=== PATIENT | male | born 1970 | race African-American/Black ===

== ENCOUNTER 2018-01-16 23:40 | Inpatient (IN) | payer MEDICAID ==
[~2018-01-16] VITALS: Ht 180.3 cm; Wt 72.1 kg
--- NOTE | 2018-01-16 23:40 | NUR ---
Mckayla leigh in [facility] - 01/16/18 at 2350 by MMTHEM Patient REGGIE TRAN, transferred to bed 1. RN evaluating patient at bedside.
[2018-01-16 23:46] VITALS: BP 115/64
--- NOTE | 2018-01-16 23:51 | NUR ---
TO BED # 10 AMBULATORY REPORT GIVEN TO MARVA
--- NOTE | 2018-01-17 | NUR ---
47/M BIBA FROM HOME. PT STATED HAD N/V X4 WITH LITTLE "DARK SLIMY BLOOD." PT STATED HE HAS BEEN HAVING 9/10 SHARP CONSTANT DIFFUSE ABD PAIN, R GREATER THAN L, RADIATING TO R LOWER BACK, X5 DAYS. PT REPORTS DECREASED APPETITE, "HAVEN'T BEEN EATING IN 5 DAYS." LBM 5 DAYS AGO. HX GASTRITIS, HERPES; RX OMEPRAZOLE; NKA. SKIN IS INTACT, PINK/WARM/DRY; AAOX4, PERRL, WITH EVEN AND STEADY GAIT; LUNGS CLEAR BL, BREATHING UNLABORED; BS HYPOACTIVE X4, ABD SOFT ROUND SLIGHLY TENDER TO TOUCH. PT DENIES ANY FEVER, CP, SOB, OR COUGH AT THIS TIME; PATIENT POSITIONED FOR COMFORT; HOB ELEVATED; BEDRAILS UP X2; BED DOWN.
--- NOTE | 2018-01-17 01:11 | NUR ---
Dr. Ferrell evaluating patient at bedside.
[2018-01-17] MEDS ORDERED: MORPHINE SULFATE 4 MG/ML SYR IVP ONE (01:15)
[2018-01-17] MEDS ORDERED: NACL 0.9% 1,000 ML IV SCH ×2 (01:15→03:17)
[2018-01-17 01:32] LABS: BASOPHILS % (AUTO) 0.8 % (0.0-2.0); HEMATOCRIT 29.4 % (36-52); HEMOGLOBIN 9.6 g/dL (12.0-18.0); LYMPHOCYTES # (AUTO) 0.9 K/uL (2.0-11.5); LYMPHOCYTES % (AUTO) 26.3 % (20.5-51.1); MEAN CORPUSCULAR HEMOGLOBIN 29 pg (27-31); MEAN CORPUSCULAR HGB CONC 33 g/dL (33-37); MEAN CORPUSCULAR VOLUME 89.1 fL (80-94); MONOCYTES # (AUTO) 0.5 K/uL (0.8-1.0); MONOCYTES % (AUTO) 15.3 % (1.7-9.3); NEUTROPHILS % (AUTO) 57.6 % (42.2-75.2)
[2018-01-17 01:49] LABS: ALBUMIN 3.1 g/dL (3.4-5.0); ANION GAP 15.2 (8-16); CARBON DIOXIDE 25.4 mmol/L (21-32); CREATININE 1.2 mg/dL (0.7-1.3); POTASSIUM 3.6 mmol/L (3.5-5.1); TOTAL BILIRUBIN 0.4 mg/dL (0.0-1.0)
[2018-01-17 01:56] LABS: PLATELET COUNT (AUTO) 47 K/uL (140-450); RED CELL DISTRIBUTION WIDTH 21.8 % (11.6-13.7); WHITE BLOOD COUNT (AUTO) 3.4 K/uL (4.8-10.8)
--- NOTE | 2018-01-17 02:00 | NUR ---
PT RESTING COMFORTABLY IN BED, RR EVEN AND UNLABORED. ALL NEEDS MET AT THIS TIME.
[2018-01-17 02:01] LABS: APPEARANCE,URINE CLEAR (CLEAR); BILIRUBIN,URINE NEGATIVE (NEGATIVE); BLOOD, URINE 1+ (NEGATIVE); COLOR,URINE YELLOW (YELLOW); LEUKOCYTE ESTERASE ,URINE NEGATIVE (NEGATIVE); NITRITE, URINE NEGATIVE (NEGATIVE); PH,URINE 5.5 (5.0-9.0); UGLUCOSE NEGATIVE (NEGATIVE)
[2018-01-17 02:02] LABS: CALCIUM OXALATE CRYSTALS,UR 30-50 /HPF (None Seen); RBC,URINE 3-10 (FEW) /HPF (0-5); WBC,URINE 0-5 (RARE) /HPF (0-5)
[2018-01-17] MEDS ORDERED: HYDROcodone/APAP 5/325 MG 1 TAB TAB PO PRN (03:20)
[2018-01-17] MEDS ORDERED: ONDANSETRON 4 MG/2 ML VIAL IM/IVP PRN (03:20)
[2018-01-17] MEDS ORDERED: ACETAMINOPHEN 325 MG TAB PO PRN (03:20)
[2018-01-17] MEDS ORDERED: ZOLPIDEM 5 MG TAB PO PRN (03:20)
[2018-01-17] MEDS ORDERED: DOCUSATE SODIUM 100 MG GELCAP PO PRN (03:20)
[2018-01-17] MEDS ORDERED: LORazepam 2 MG/ML VIAL IM/IVP PRN (03:20)
[2018-01-17] MEDS ORDERED: MUPIROCIN 2% OINT 22 GM TUBE TP PRN (03:20)
[2018-01-17 03:48] LABS: BARBITURATE, URINE NEG. ng/ml (NEG <=200); BENZODIAZEPINE, URINE NEG. ng/mL (NEG <=200); CANNABINOID, URINE POS. ng/mL (NEG <=50); COCAINE, URINE NEG. ng/mL (NEG <=300); OPIATE, URINE NEG. ng/mL (NEG <=2000); PHENCYCLIDINE SCREEN,URINE NEG. ng/mL (NEG <=25)
[2018-01-17 03:52] LABS: CHOL/HDL RATIO 4.3 (1-4.5); MAGNESIUM 1.7 mg/dL (1.8-2.4); PHOSPHORUS 4.2 mg/dL (2.5-4.9); THYROID STIMULATING HORMONE 0.85 uIU/mL (0.34-3.74)
[2018-01-17 04:20] VITALS: BP 121/69
--- NOTE | 2018-01-17 04:20 | NUR ---
PT ARRIVED TO UNIT VIA GURNEY WITH SIGNIFICANT OTHER. RECEIVED REPORT FROM ER NURSE COOPER-RN. PT AOX4-CALM AND COOPERATIVE. ON ROOM AIR. IV RIGHT AC 20G. AMBULATORY. DISCUSSED PLAN OF CARE AND PT VERBALIZED UNDERSTANDING. VITAL SIGNS WITHIN NORMAL LIMITS. ON TELE-SB. NO S/S OF RESPIRATORY DISTRESS OR DISCOMFORT NOTED AT THIS TIME. ORIENTED PT TO ROOM, BED, CALL LIGHT. BED IN LOWEST POSITION, BED BREAKS ON, BOTH SIDE RAILS UP. BED SIDE TABLE AND CALL LIGHT WITHIN REACH. WILL CONTINUE TO MONITOR.
--- NOTE | 2018-01-17 04:20 | NUR ---
Patient will be admitted to care of DR. GARSIA. Admited to TELE. Will go to room 119B. Belongings list completed. Report to DORA SCHWAB AT BEDSIDE.
[2018-01-17] MEDS ORDERED: LORazepam 0.5 MG TAB PO PRN ×2 (04:30)
[2018-01-17] MEDS ORDERED: DEXAMETHASONE 10 MG/ML VIAL IVP SCH (05:00)
--- NOTE | 2018-01-17 05:00 | NUR ---
MRSA COLLECTED. NEW BAG OF NS HUNG RUNNING AT 60ML/HR. PT TOLERATED WELL. NO S/S OF RESPIRATORY DISTRESS OR DISCOMFORT. WILL CONTINUE TO MONITOR.
--- NOTE | 2018-01-17 05:30 | NUR ---
SCHEDULED MEDICATION GIVEN AND TOLERATED WELL. NO S/S OF RESPIRATORY DISTRESS OR DISCOMFORT NOTED AT THIS TIME. WILL CONTINUE TO MONITOR.
[2018-01-17] MEDS ORDERED: BISACODYL 10 MG SUPP RC ONE (06:30)
--- NOTE | 2018-01-17 07:00 | NUR ---
SUPPOSITORY GIVEN AND TOLERATED WELL. NO S/S OF RESPIRATORY DISTRESS OR DISCOMFORT NOTED AT THIS TIME. WILL CONTINUE TO MONITOR.
[2018-01-17 07:38] LABS: HEMATOCRIT 28.5 % (36-52); HEMOGLOBIN 9.5 g/dL (12.0-18.0)
[2018-01-17] MEDS ORDERED: METOCLOPRAMIDE 10 MG/2 ML INJ VIAL IVP PRN (07:40)
--- NOTE | 2018-01-17 07:42 | NUR ---
RECEIVED REPORT FROM GROCERY ASSOCIATE RN. PT SLEEPING IN BED AROUSABLE. ABLE TO COMMUNICATE. A/O X4. VERBALIZES NEEDS. SKIN DRY AND WARM TO TOUCH. LUNGS CLEAR ON AUSCULTATION. ROOM AIR. SPO2 99%. PERIPHERAL LINE RIGHT AC, INTACT NS RUNNING AT 60 ML/HR. ABDOMEN SOFT ROUND AND TENDER. C/O BODY PAIN WILL MEDICATE WITH ROUTINE AND PRN PAIN MEDICATION. HYPOACTIVE BOWEL SOUND. VS WNL. SKIN INTACT. KEPT HOB ELEVATED. BED IN LOW POSITION LOCKED. WILL CONTINUE TO MONITOR.
--- NOTE | 2018-01-17 07:42 | NUR ---
ENDORSED PT CARE TO DAY SHIFT NURSE YAMEL FOR CONTINUITY OF CARE.
[2018-01-17 08:00] VITALS: BP 97/52
[2018-01-17] MEDS ORDERED: FERROUS SULFATE 325 MG TABEC PO SCH (08:00)
[2018-01-17] MEDS ORDERED: PANTOPRAZOLE 40 MG TABEC PO SCH (08:00)
[2018-01-17] MEDS: TAMSULOSIN 0.4 MG CAP PO SCH (08:39)
[2018-01-17] MEDS: DEXT 5% /NACL 0.9% 1,000 ML IV SCH ×2 (08:40→16:34)
[2018-01-17] MEDS: CYCLOBENZAPRINE 10 MG TAB PO SCH ×3 (08:40→16:33)
--- NOTE | 2018-01-17 08:49 | NUR ---
PATIENT HAS BEEN SCREENED AND CATEGORIZED HIGH NUTRITION RISK. PATIENT WILL BE SEEN WITHIN 1-2 DAYS OF ADMISSION. 01/17/18 01/18/[address]
[2018-01-17] MEDS ORDERED: MAG SULF 2000 MG/WATER PREMIX 50 ML IV SCH (09:00)
[2018-01-17] MEDS ORDERED: PANTOPRAZOLE 40 MG INJ VIAL IVP SCH ×2 (09:00→09:24)
--- NOTE | 2018-01-17 10:32 | NUR ---
PT AND PATIENT LIBERTARIAN MADE AWARE THAT VISITORS ARE NOT ALLOWED TO SLEEP OR SIT IN PT BEDS. POSSIBLE RISKS EXPLAINED TO PT AND PATIENT LIBERTARIAN. CHAIR PROVIDED TO VISITOR TO SIT AND GET REST.
--- NOTE | 2018-01-17 10:46 | NUR ---
ST EVALUATION DONE. PT PASSED SWALLOW EVAL TEST.
--- NOTE | 2018-01-17 11:04 | NUR ---
TECH AT BEDSIDE FOR US KIDNEY.
--- NOTE | 2018-01-17 11:31 | NUR ---
FRICTION SAW OPERATOR NOTE 9:45-10:30 Bedside swallow evaluation completed. Please refer to FRICTION SAW OPERATOR evaluation for full report. Recommend: -Mechanical soft chopped texture + thin liquids -Upright at 90 degrees and 20 mins after PO intake -Small bites/sips, slow rate, alternate bites/sips -FRICTION SAW OPERATOR to follow 1X/wk X 1 wk for diet tolerance Pt educated on swallow precautions at bedside. Swallow precautions placed at [facility]. G8996: CJ C8997: CI Swallow NOMS 5 Caio Saleh, FRICTION SAW OPERATOR
--- NOTE | 2018-01-17 11:45 | NUR ---
PAGED DR. Roy. DR. TOSCANO AND DR. PEREZ MADE AWARE ABOUT PT C/O PAIN. WILL FOLLOW UP ON ORDER.
[2018-01-17] MEDS ORDERED: diphenhydrAMINE 50 MG/ML VIAL ONE (12:17)
[2018-01-17] MEDS ORDERED: MIDAZOLAM 2 MG/2 ML VIAL ONE (12:17)
[2018-01-17] MEDS ORDERED: fentaNYL 0.05 MG/ML VIAL ONE (12:17)
--- NOTE | 2018-01-17 12:30 | NUR ---
HELD PAIN MEDICATION AT THIS TIME FOR EGD PROCEDURE. PT TAKEN BY OR NURSE FOR EGD PROCEDURE VIA BED. PT ON STABLE CONDITION.
[2018-01-17] MEDS: MIDAZOLAM 2 MG/2 ML VIAL IVP ONE ×2 (12:51→13:47)
[2018-01-17] MEDS: fentaNYL 0.05 MG/ML VIAL IVP ONE ×2 (12:52→13:40)
--- NOTE | 2018-01-17 13:18 | NUR ---
PT NOT BACK FROM PROCEDURAL ROOM. WILL MEDICATE LATER AFTER ASSESSING PT CONDITION.
[2018-01-17 13:33] VITALS: BP 106/56
--- NOTE | 2018-01-17 13:34 | NUR ---
PT BACK FROM EGD PROCEDURE. PT ALERT ORIENTED. RESULTS READ TO PT AND FAMILY BY OR NURSE. OKAY TO ADMINISTER PO MEDICATION. VS TAKEN WAS T 97.4 P 56 BP 106/56 SPO2 95 IN ROOM AIR. RR 20. WILL CONTINUE TO MONITOR.
[2018-01-17] MEDS: HYDROcodone/APAP 5/325 MG 1 TAB TAB PO PRN ×2 (13:53→21:43)
[2018-01-17] MEDS: FLUCONAZOLE 200 MG/NS PREMIX 100 ML IV SCH (13:54)
--- NOTE | 2018-01-17 14:37 | NUR ---
Clinical review faxed to [facility] [phone] and phone number opt 2, then 1 then 2
--- NOTE | 2018-01-17 15:03 | NUR ---
01/17/18 RD INITIAL ASSESSMENT COMPLETED PLEASE REFER TO NUTRITION ASSESSMENT UNDER CARE ACTIVITY FOR ESTIMATED NUTRITIONAL NEEDS. 1. CONTINUE REGULAR MECHANICAL SOFT DIET, TOLERATED 2. RECOMMEND MVI Q D 3. FOLLOW-UP EDUCATION ON SYMPTOM MANAGEMENT FOR GERD AND GASTRITIS 4. RD TO FOLLOW-UP 3-5 DAYS, MODERATE RISK MONSE KEENE RD
--- NOTE | 2018-01-17 15:12 | NUR ---
PT RESTING IN BED COMFORTABLY. NO ACUTE RESPIRATORY DISTRESS NOTED. NO CHANGE IN LOC. FAMILY AT BEDSIDE. WILL CONTINUE TO MONITOR.
[2018-01-17 16:00] VITALS: BP 110/68
[2018-01-17] MEDS: SENNA 8.6 MG TAB PO SCH (16:33)
--- NOTE | 2018-01-17 16:46 | NUR ---
PT APPEARS TO BE RELAXED. NO ACUTE RESPIRATORY DISTRESS NOTED. DENIES PAIN AT THIS TIME. ADMINISTERED MEDICATION ORDERED. TOLERATING WELL.
[2018-01-17] MEDS: NACL 0.9% 1,000 ML IV SCH ×2 (18:25→21:43)
--- NOTE | 2018-01-17 18:28 | NUR ---
PT EATING DINNER AT THIS TIME. TOLERATING WELL.
--- NOTE | 2018-01-17 19:30 | NUR ---
REPORT GIVEN TO MANAGER FOREIGN RN FOR CONTINUITY OF CARE. PT ON STABLE CONDITION.
--- NOTE | 2018-01-17 19:31 | NUR ---
RECEIVED REPORT FROM DAYSHIFT NURSE AT BEDSIDE FOR CONTINUITY OF CARE. PT AAOX4. IV NOTED RAC 20G NS 100ML/HR. PT COMPLAINING OF LOWER BACK PAIN. HAS NO SOB NO S/S OF DISTRESS. ON ROOM AIR. BED LOWERED CALL LIGHT WITHIN REACH WILL CONTINUE TO MONITOR.
[2018-01-17 20:00] VITALS: BP 91/53
[2018-01-17] MEDS ORDERED: KETOROLAC 30 MG/ML VIAL IVP ONE (20:50)
--- NOTE | 2018-01-17 22:00 | NUR ---
GAVE PATIENT NORCO FOR PAIN. ALSO INCREASED FLUIDS PER MD ORDER BECAUSE LOW BP. ALSO ORDERED K PAD FOR LOWER BACK WILL CONTINUE TO MONITOR.
--- NOTE | 2018-01-18 00:51 | NUR ---
PT SLEEPING NO SOB NO S/S OF DISTRESS WILL CONTINUE TO MONITOR.
[2018-01-18] MEDS: HYDROcodone/APAP 5/325 MG 1 TAB TAB PO PRN (05:34)
[2018-01-18 06:23] LABS: HEMATOCRIT 26.2 % (36-52); HEMOGLOBIN 8.6 g/dL (12.0-18.0); MEAN CORPUSCULAR HEMOGLOBIN 29 pg (27-31); MEAN CORPUSCULAR HGB CONC 33 g/dL (33-37); MEAN CORPUSCULAR VOLUME 89.2 fL (80-94); RED BLOOD CELL COUNT(AUTO) 2.94 MIL/uL (4.20-6.10); RED CELL DISTRIBUTION WIDTH 22.3 % (11.6-13.7); WHITE BLOOD COUNT (AUTO) 3.4 K/uL (4.8-10.8)
[2018-01-18 06:27] LABS: PLATELET COUNT (AUTO) 46 K/uL (140-450)
[2018-01-18 07:07] LABS: CARBON DIOXIDE 25.8 mmol/L (21-32); CREATININE 1.2 mg/dL (0.7-1.3); POTASSIUM 3.8 mmol/L (3.5-5.1)
[2018-01-18 07:12] LABS: MAGNESIUM 1.8 mg/dL (1.8-2.4); PHOSPHORUS 2.6 mg/dL (2.5-4.9)
--- NOTE | 2018-01-18 07:17 | NUR ---
ENDORSED REPORT TO DAYSHIFT NURSE AT BEDSIDE FOR CONTINUITY OF CARE.
--- NOTE | 2018-01-18 07:18 | NUR ---
RECEIVED BEDSIDE REPORT FROM HOOKER INSPECTOR NURSE. PATIENT IS AWAKE, ALERT AND ORIENTEDX4. NO SIGNS OF DISTRESS ON ROOM AIR. PATIENT SITTING AT THE SIDE OF THE BED, WAITING FOR BREAKFAST. HE HAS STEADY AMBULATION. SKIN IS INTACT. LBM IS 6/28. L HAND 22G INFUSING NS AT 100. IV IS CLEAN, DRY AND INTACT. BED IN LOW POSITION. CALL LIGHT WITHIN REACH. WILL CONTINUE TO MONITOR THE PATIENT. PATIENT HAS NO COMPLAINTS OF NAUSEA OR VOMITING AT THIS TIME.
[2018-01-18 07:29] LABS: LYMPHOCYTES % (MANUAL) 24 % (20-46); MONOCYTES % (MANUAL) 11 % (5-12)
[2018-01-18 08:00] VITALS: BP 106/61
[2018-01-18] MEDS ORDERED: PANTOPRAZOLE 40 MG INJ VIAL IVP SCH (09:00)
[2018-01-18] MEDS ORDERED: BISACODYL 5 MG TABEC PO SCH (09:00)
[2018-01-18] MEDS ORDERED: MAGNESIUM CITRATE 300 ML BTL PO SCH (09:00)
[2018-01-18] MEDS ORDERED: DOCUSATE SODIUM 100 MG GELCAP PO SCH (09:00)
[2018-01-18] MEDS: TAMSULOSIN 0.4 MG CAP PO SCH (09:11)
[2018-01-18] MEDS: SENNA 8.6 MG TAB PO SCH ×2 (09:12→12:39)
--- NOTE | 2018-01-18 09:22 | NUR ---
ADMINISTERED MEDS. PATIENT TOLERATED WELL. HE WANTS TO GET ROBAXIN FOR HIS LOWER BACK SPASMS, WILL TELL YESTERDAY HE HAD IT MORE FREQ
[2018-01-18] MEDS ORDERED: METH500T18 PO (10:35)
[2018-01-18] MEDS ORDERED: DOCU-299 PO (10:35)
[2018-01-18] MEDS ORDERED: FLUC200T PO (10:35)
[2018-01-18] MEDS ORDERED: METHOCARBAMOL 500 MG TAB PO SCH ×2 (10:50→13:00)
--- NOTE | 2018-01-18 11:00 | NUR ---
ADMINISTERED MEDS. PATIENT TOLERATED WELL. WILL CONTINUE TO MONITOR THE PATIENT.
--- NOTE | 2018-01-18 11:15 | NUR ---
PATIENT IS NAUSEATED. ADMINISTERED PRN NAUSEA MED. PATIENT TOLERATED WELL. IV IS CLEAN, DRY AND INTACT
--- NOTE | 2018-01-18 13:00 | NUR ---
PATIENT SITTING AT BEDSIDE. NO COMPLAINTS AT THIS TIME
[2018-01-18] MEDS: FLUCONAZOLE 200 MG/NS PREMIX 100 ML IV SCH (13:32)
--- NOTE | 2018-01-18 14:50 | NUR ---
EDUCATED PATIENT ON DISEASE PROCESS, ABN S/SX, WHEN TO GO TO THE NEAREST ER, THE NEED TO F/U WITH PCP AND [employer] SPECIALIST/ONCOLOGIST (DR [id number]), EDUCATED ON MEDS, GAVE PRESCRIPTIONS, ALL DC PAPERWORK SIGNED. PATIENT VERBALIZED UNDERSTANDING. REMOVED ID BANDS AND IV, TIP OF IV IS INTACT. PATIENT LEFT WALKING, DISCHARGED TO HIS FAMILY IN STABLE CONDITION.
[2018-01-18 15:07] LABS: FOLIC ACID 15.9 ng/mL (>3.0)
--- NOTE | 2018-01-19 16:40 | NUR ---
PER REQUEST FROM [facility], FAXED CLINICALS, ER REPORT, CONSULTS, ETC TO [phone] PHONE [facility] [phone].
--- NOTE | 2018-01-20 11:53 | NUR ---
GSA COORDINATOR NOTE Bedside swallow evaluation completed on 01/17/18 and pt discharged from hospital on 01/18/2018. G8996: SONAM G8997: CI G8998: CJ Swallow NOMS 5 Caio Saleh, GSA COORDINATOR
== END 2018-01-18 14:50 | disposition home or self-care (01) | DRG 242 ==
LOC: MED 23:40 → MTU 01-17 03:24
PROVIDERS: ADMIT General Practice; ATTEND General Practice
PROC: 0DB78ZX Excision of Stomach, Pylorus, Via Natural or Artificial Opening Endoscopic, Diagnostic (ICD-10-PCS; 2018-01-17)
PROC: 0DB58ZX Excision of Esophagus, Via Natural or Artificial Opening Endoscopic, Diagnostic (ICD-10-PCS; principal; 2018-01-17 12:15)
DX: B37.81 Candidal esophagitis (principal); N17.0 Acute kidney failure with tubular necrosis; D61.818 Other pancytopenia; E44.0 Moderate protein-calorie malnutrition; E87.1 Hypo-osmolality and hyponatremia; E83.42 Hypomagnesemia; R13.10 Dysphagia, unspecified; D64.9 Anemia, unspecified; E78.5 Hyperlipidemia, unspecified; K59.00 Constipation, unspecified; K21.9 Gastro-esophageal reflux disease without esophagitis; K29.00 Acute gastritis without bleeding; F12.10 Cannabis abuse, uncomplicated; E86.0 Dehydration; F12.188 Cannabis abuse with other cannabis-induced disorder; R31.9 Hematuria, unspecified; F19.10 Other psychoactive substance abuse, uncomplicated; Z68.22 Body mass index [BMI] 22.0-22.9, adult; M62.838 Other muscle spasm
CPT/HCPCS: 36415; 71045; 74018; 76770; 80048; 80053; 80305; 81001; 82607; 82728; 82746; 83036; 83540; 83690; 83735; 84100; 84134; 84443; 85018; 85025; 85045; 85610; 85730; 86677; 87040; 87081; 88305; 88312; 92610; 93005; 96361; 96374; 97799; 99285; C9113; J1100; J1200; J1450; J2250; J2270; J2765; J3010; J3475; J7030; J7042; Q0092